=== PATIENT | male | born 1970 | race American Indian/Alaskan Native ===

== ENCOUNTER 2020-11-07 17:38 | Emergency (ER) | payer SELFPAY ==
[2020-11-07 20:07] VITALS: BP 122/71
[2020-11-07] MEDS ORDERED: TETRACAINE 0.5% OPHTH SOLN 4ML OU ONE (22:53)
[2020-11-07] MEDS ORDERED: FLUORESCEIN 1 MG STRIP OP ONE (22:53)
--- NOTE | 2020-11-07 23:15 | Emergency Department Report ---
ED General Adult HPI - General Chief complaint: Eye Problems Stated complaint: (R)EYE SWOLLEN PAIN Time Seen by Provider: 11/07/20 21:28 Source: patient Mode of arrival: Ambulatory Limitations: No Limitations - History of Present Illness Initial comments: 50-year-old male patient with history of hypertension, cataract surgery, and Lasix surgery presents to the emergency department with complaints of painful redness to his right eye with associated visual disturbance for 1 week. No preceding trauma. No known sick contacts. Patient describes the visual disturbance as "dark spots and jellyfish." No new medications. Patient is not currently under the care of an principal clerk. Denies cough, congestion, rash, headache, vomiting, vision loss, diplopia. Denies all other complaints at this time. - Related Data Previous Rx's Medication Instructions Recorded Last Taken Type Amoxicillin [Amoxicillin TAB] 875 mg PO BID 7 Days tablet 11/08/20 Unknown Rx Erythromycin [Erythromycin Ophth 10 applic OP QID #1 tube 11/08/20 Unknown Rx Oint] Sulfamethoxazole/Trimethoprim 1 each PO BID 7 Days tablet 11/08/20 Unknown Rx [Bactrim DS TAB] Allergies Allergy/AdvReac Type Severity Reaction Status Date / Time No Known Allergies Allergy Verified 11/07/20 23:23 ED Review of Systems ROS: Stated complaint: (R)EYE SWOLLEN PAIN Other details as noted in HPI Other: GENERAL: Negative for fever. EYES: Positive for pain/redness/visual disturbance. CARDIOVASCULAR: Negative for chest pain. PULMONARY: Negative for shortness of breath. GASTROINTESTINAL: Negative for abdominal pain. MUSCULOSKELETAL: Negative for back pain. NEUROLOGICAL: Negative for headache. INTEGUMENTARY: Negative for rash. ED Past Medical Hx - Medications Home Medications: Home Medications Medication Instructions Recorded Confirmed Last Taken Type Amoxicillin [Amoxicillin TAB] 875 mg PO BID 7 Days tablet 11/08/20 Unknown Rx Erythromycin [Erythromycin Ophth 10 applic OP QID #1 tube 11/08/20 Unknown Rx Oint] Sulfamethoxazole/Trimethoprim 1 each PO BID 7 Days tablet 11/08/20 Unknown Rx [Bactrim DS TAB] ED Physical Exam - General Limitations: No Limitations - Other Other exam information: General: Awake, appropriately interactive, no acute distress. Eyes: PERRL. Conjugate gaze. Patient endorses pain with extraocular movements. Right conjunctiva/sclera injection. Right periorbital tenderness/swelling. Tetracaine was used for local anesthesia. Fluorescein strip was used. Farmer lamp was used for visualization. Fluorescein uptake noted to the periphery of the right pupil from 5:00 to 7:00, consistent with prior surgery. No corneal abrasions. No corneal ulcerations. No foreign body found. Visual acuity is 20/70 on the right eye and 20/15 on the right eye. Limited funduscopic exam without apparent abnormalities. Neck: Supple. Full range of motion intact. Cardiovascular: Normal peripheral perfusion. Pulmonary: No respiratory distress. Patient is speaking normally without use of accessory muscles. Skin: No apparent rashes or lesions. Neurological: No facial asymmetry. Speech is clear. Follows commands. Patient is alert and oriented. Musculoskeletal: Moves all four extremities spontaneously with normal range of motion. Psych: Cooperative. Appropriate mood and affect. ED Course Vital Signs 11/07/20 20:07 Temperature 98.2 F Pulse Rate 64 Respiratory 16 Rate Blood Pressure 122/71 [Left] O2 Sat by Pulse 97 Oximetry - Procedure Description Procedures done: Verbal consent was obtained from the patient. The area was cleansed with alcohol. Hand hygiene observed. Two attempts to place peripheral IV (18 gauge and 22 gauge) in the right AC using ultrasound guidance were unsuccessful. ED Medical Decision Making - Lab Data Result diagrams: 11/07/20 23:27 11/07/20 23:27 - Radiology Data [facility] [address] [place] [address] Cat Scan Report Signed Patient: LOLI JALLOH MR#: [id number] : 1970 Acct:[id number] Age/Sex: 50 / M ADM Date: 11/07/20 Loc: ED Attending Dr: Ordering Physician: DIAMOND PACE Date of Service: 11/07/20 Procedure(s): CT orbit/ear/fossa wo con Accession Number(s): [id number] cc: DIAMOND PACE CT ORBITS / MAXILLOFACIAL WITHOUT CONTRAST INDICATION / CLINICAL INFORMATION: Left eye pain w/ extraocular movement, orbital cellulitis. Unable to obtain IV access. TECHNIQUE: All CT scans at this location are performed using CT dose reduction for ALARA by means of automated exposure control. COMPARISON: None available. FINDINGS: FACIAL BONES: No fracture or other significant abnormality. PARANASAL SINUSES: No significant abnormality. ORBITS: Left periorbital/preseptal soft tissue swelling. No orbital/post-septal soft tissue swelling or inflammation. SOFT TISSUES: No soft tissue gas. No abscess. VISUALIZED INTRACRANIAL STRUCTURES: No significant abnormality. ADDITIONAL FINDINGS: None. IMPRESSION: 1. Left periorbital/preseptal soft tissue swelling. No soft tissue gas or abscess. Signer Name: aTra Lay MD Signed: 11/08/2020 3:23 AM Workstation Name: [id number] Transcribed By: DT Dictated By: Trevor Lay MD Electronically Authenticated By: Trevor Lay MD Signed Date/Time: 11/08/20322 DD/ 6 TD/TT: - Medical Decision Making Differential diagnosis including but not limited to: periorbital cellulitis, orbital cellulitis, dacryocystitis, conjunctivitis, retinal vessel occlusion, retinal detachment, corneal abrasion, foreign body On reevaluation, patient remains stable. Labs are unremarkable. CT of the orbits performed without contrast; multiple attempts by several ED staff members to obtain IV access were unsuccessful. Patient states vascular access has always been difficult. Discussed with radiology and decision was made to proceed without contrast. CT demonstrated periorbital soft tissue swelling without evidence of abscess or orbital cellulitis. Visual acuities obtained and documented. Neurological exam is nonfocal. No clinical indication for further diagnostic work-up on an emergent basis at this time. Patient will be discharged home with prescriptions for Amoxicillin and Bactrim per current UpToDate guidelines, as well as Erythromycin ointment, and referred to ophthalmology for close outpatient follow-up. Emphasized the importance of calling the principal clerk office today to arrange for an appointment this week. Patient expressed understanding and is agreeable to plan of care. Strict return precautions provided. Repeat exam is unremarkable and benign. History, exam, diagnostic testing, and current condition do not suggest worrisome pathology to warrant further testing, continued ED treatment, admission, or surgical evaluation at this point. Given the low probability of a significant medical illness, it would be more likely to result in harm than benefit to perform further testing at this stage. Discussed findings, presumptive diagnosis, need for follow-up and specific signs/symptoms that should prompt immediate return to the emergency department. Instructions were explained in detail to the patient in addition to giving written discharge information. Patient expressed understanding and was given the opportunity to ask questions, all of which were satisfactorily answered prior to discharge home. Case discussed with Dr. Sanders, attending emergency physician, who personally evaluated the patient and agrees with diagnostic work-up/plan of care. Critical care attestation.: If time is entered above; I have spent that time in minutes in the direct care of this critically ill patient, excluding procedure time. ED Disposition Clinical Impression: Periorbital cellulitis of right eye Disposition: DC-01 TO HOME OR SELFCARE Is pt being admited?: No Does the pt Need Aspirin: No Condition: Stable Instructions: Preseptal Cellulitis, Adult Additional Instructions: Take Tylenol every 4 hours and Motrin every 8 hours as needed for pain. Take Bactrim and Amoxicillin with food as directed. Increase your dietary intake of probiotic rich foods while taking these medications. Apply Erythromycin ointment as directed. Apply cool compresses to affected area as needed for swelling. Follow up with principal clerk this week. Call today to schedule an appointment. See referral information below. Return to the emergency department immediately for new or worsening symptoms. Specifically, return to the emergency department immediately for fever, headache, worsening pain/visual disturbance, seizure, neck stiffness, or any other concerns. Prescriptions: Amoxicillin [Amoxicillin TAB] 875 mg PO BID 7 Days tablet Sulfamethoxazole/Trimethoprim [Bactrim DS TAB] 1 each PO BID 7 Days tablet Erythromycin [Erythromycin Ophth Oint] 10 applic OP QID #1 tube Referrals: ROBYN MARI MD [Staff Physician] - 3-5 Days Forms: Work/School Release Form(ED) Time of Disposition: 03:48
[2020-11-07 23:57] LABS: Basophils # (Auto) 0.1 K/mm3 (0.0-0.1); Basophils % (Auto) 0.8 % (0.0-1.8); Eosinophils # (Auto) 0.1 K/mm3 (0.0-0.4); Eosinophils % (Auto) 0.7 % (0.0-4.3); Hematocrit 43.7 % (35.5-45.6); Hemoglobin 15.2 gm/dl (11.8-15.2); Lymphocytes # (Auto) 3.7 K/mm3 (1.2-5.4); Lymphocytes % (Auto) 36.6 % (13.4-35.0); Mean Corpuscular HGB Conc 35 % (32-34); Mean Corpuscular Volume 89 fl (84-94); Monocytes # (Auto) 1.2 K/mm3 (0.0-0.8); Monocytes % (Auto) 11.9 % (0.0-7.3); Platelet Count 283 K/mm3 (140-440); Red Blood Count 4.89 M/mm3 (3.65-5.03); Red Cell Distribution Width 13.7 % (13.2-15.2)
[2020-11-08 00:18] LABS: Alanine Aminotransferase 22 units/L (7-56); Albumin 4.3 g/dL (3.9-5); BUN/Creatinine Ratio 16; Blood Urea Nitrogen 19 mg/dL (9-20); Calcium 9.2 mg/dL (8.4-10.2); Hemolysis Index 16
--- NOTE | 2020-11-08 03:27 | Cat Scan Report ---
CT ORBITS / MAXILLOFACIAL WITHOUT CONTRAST INDICATION / CLINICAL INFORMATION: Left eye pain w/ extraocular movement, orbital cellulitis. Unable to obtain IV access. TECHNIQUE: All CT scans at this location are performed using CT dose reduction for ALARA by means of automated exposure control. COMPARISON: None available. FINDINGS: FACIAL BONES: No fracture or other significant abnormality. PARANASAL SINUSES: No significant abnormality. ORBITS: Left periorbital/preseptal soft tissue swelling. No orbital/post-septal soft tissue swelling or inflammation. SOFT TISSUES: No soft tissue gas. No abscess. VISUALIZED INTRACRANIAL STRUCTURES: No significant abnormality. ADDITIONAL FINDINGS: None. IMPRESSION: 1. Left periorbital/preseptal soft tissue swelling. No soft tissue gas or abscess. Signer Name: Tara Lay MD Signed: 11/08/2020 3:23 AM Workstation Name: [id number]
== END 2020-11-08 04:00 | disposition home or self-care (01) ==
LOC: ED 17:38
DX: L03.213 Periorbital cellulitis (principal); Z79.899 Other long term (current) drug therapy
CPT/HCPCS: 36415; 70480; 80053; 85025

== ENCOUNTER 2021-05-30 15:08 | Emergency (ER) | payer OTHER ==
[2021-05-30] MEDS ORDERED: SULFAMETHOXAZOLE/TRIMETHOPRIM 800/160MG DS TAB PO ONE (17:05)
[2021-05-30] MEDS ORDERED: AMOXICILLIN 500 MG CAP PO ONE (17:05)
[2021-05-30] MEDS ORDERED: KETOROLAC 10 MG TAB PO ONE (17:06)
--- NOTE | 2021-05-30 17:11 | Emergency Department Report ---
ED Eye Problem HPI - General Chief complaint: Eye Problems Stated complaint: EYE PAIN Time Seen by Provider: 05/30/21 16:56 Source: patient Mode of arrival: Ambulatory Limitations: No Limitations - History of Present Illness Initial comments: 50-year-old black male with a past medical history of hypertension presents to the emergency department for evaluation of left eye redness and pain. He states that he noticed the redness yesterday along with some clear drainage. He states that he had the same symptoms about a year ago but they were worse DM. He denies any limited movement of the eye, pain with movement or loss of vision. He states that he has had some photophobia. He denies fever, shortness of breath. MD chief complaint: eye pain, eye redness -: Gradual, days(s) Onset Description: gradual (2) Location: left eye Place: home If Injury: none Eye Symptoms: redness, pain, discharge, photophobia Severity: mild Severity scale (0 -10): 4 If Pain, Quality: aching Consistency: intermittent Associated Symptoms: denies: headache, neck pain, nausea/vomiting, cough, rhinorrhea, fever, shortness of breath - Related Data Patient Tetanus UTD: Yes Previous Rx's Medication Instructions Recorded Last Taken Type Amoxicillin [Amoxicillin TAB] 875 mg PO BID 7 Days #14 tablet 05/30/21 Unknown Rx Erythromycin [Erythromycin Ophth 10 applic OP QID #1 tube 05/30/21 Unknown Rx Oint] Sulfamethoxazole/Trimethoprim 1 each PO BID 7 Days #14 tablet 05/30/21 Unknown Rx [Bactrim DS TAB] Allergies Allergy/AdvReac Type Severity Reaction Status Date / Time No Known Allergies Allergy Verified 11/07/20 23:23 ED Review of Systems ROS: Stated complaint: EYE PAIN Other details as noted in HPI Comment: All other systems reviewed and negative Constitutional: denies: chills, diaphoresis, fever, malaise, weakness Eyes: eye pain, eye discharge. denies: vision change ENT: denies: ear pain, throat pain, dental pain, hearing loss, congestion Respiratory: denies: cough, shortness of breath, SOB with exertion, SOB at rest Cardiovascular: denies: chest pain, palpitations, dyspnea on exertion, orthopnea, edema, syncope Endocrine: no symptoms reported Gastrointestinal: denies: abdominal pain, nausea, vomiting, diarrhea, constipation, hematemesis, melena, hematochezia Genitourinary: denies: urgency, dysuria, frequency, hematuria, discharge Musculoskeletal: denies: back pain Skin: denies: rash, lesions Neurological: denies: headache, weakness, numbness, paresthesias, confusion, abnormal gait, vertigo Psychiatric: denies: anxiety, depression Hematological/Lymphatic: denies: easy bleeding, easy bruising ED Past Medical Hx - Medications Home Medications: Home Medications Medication Instructions Recorded Confirmed Last Taken Type Amoxicillin [Amoxicillin TAB] 875 mg PO BID 7 Days #14 tablet 05/30/21 Unknown Rx Erythromycin [Erythromycin Ophth 10 applic OP QID #1 tube 05/30/21 Unknown Rx Oint] Sulfamethoxazole/Trimethoprim 1 each PO BID 7 Days #14 tablet 05/30/21 Unknown Rx [Bactrim DS TAB] ED Physical Exam - General Limitations: No Limitations General appearance: alert, in no apparent distress - Head Head exam: Present: atraumatic, normocephalic - Eye Eye exam: Present: PERRL, EOMI, conjunctival injection, periorbital swelling, periorbital tenderness. Absent: normal appearance (No bulging of left eye noted), scleral icterus Pupils: Present: normal accommodation - Expanded Eye Exam Expanded Eyelids: Normal Inspection: Left Pupils: Regular, Round: Bilateral, Reactive: Bilateral Sclera/Conjunctival: Normal Inspection: Right, Injection: Left - ENT ENT exam: Present: normal exam. Absent: normal orophraynx - Neck Neck exam: Present: normal inspection - Respiratory Respiratory exam: Present: normal lung sounds bilaterally. Absent: respiratory distress - Cardiovascular Cardiovascular Exam: Present: bradycardia, normal heart sounds - GI/Abdominal GI/Abdominal exam: Present: soft, normal bowel sounds. Absent: distended, tende rness, guarding, rebound, rigid - Extremities Exam Extremities exam: Present: normal inspection, full ROM - Back Exam Back exam: Present: normal inspection, full ROM - Neurological Exam Neurological exam: Present: alert, oriented X3 - Psychiatric Psychiatric exam: Present: normal affect, normal mood - Skin Skin exam: Present: warm, dry, intact ED Course Vital Signs 05/30/21 05/30/21 05/30/21 16:28 17:18 18:06 Temperature 97.7 F 98.6 F Pulse Rate 58 L 82 Respiratory 16 16 16 Rate Blood Pressure 114/64 124/78 [Left] O2 Sat by Pulse 98 97 Oximetry ED Medical Decision Making - Medical Decision Making 50-year-old black male with a past medical history of hypertension presents to the emergency department for evaluation of left eye redness and pain. He states that he noticed the redness yesterday along with some clear drainage. He states that he had the same symptoms about a year ago but they were worse DM. He denies any limited movement of the eye, pain with movement or loss of vision. He states that he has had some photophobia. He denies fever, shortness of breath. Exam consistent with periorbital swelling. Symptoms occurred to the left only. Patient denies limited eye movement, pain on eye movement, and loss of vision. No bulging of left noted. Patient appears to be in no acute distress. He will be treated with erythromycin ointment nightly to affected eye. 7-day course of amoxicillin 875 mg p.o. twice daily along with Bactrim DS p.o. twice daily. He was advised to take medications as prescribed, and follow-up with ophthalmology for further evaluation. He was advised to return to the emergency department or ophthalmology if worsening symptoms. He verbalized an understanding of and agreement with plan of care. Critical care attestation.: If time is entered above; I have spent that time in minutes in the direct care of this critically ill patient, excluding procedure time. ED Disposition Clinical Impression: Periorbital cellulitis of left eye Disposition: HOME / SELF CARE / HOMELESS Is pt being admited?: No Does the pt Need Aspirin: No Condition: Stable Instructions: Preseptal Cellulitis, Adult Additional Instructions: Take medications as prescribed. Follow-up with ophthalmology for further evaluation and worsening symptoms. Prescriptions: Amoxicillin [Amoxicillin TAB] 875 mg PO BID 7 Days #14 tablet Sulfamethoxazole/Trimethoprim [Bactrim DS TAB] 1 each PO BID 7 Days #14 tablet Erythromycin [Erythromycin Ophth Oint] 10 applic OP QID #1 tube Referrals: ESAU ROMO MD [Staff Physician] - 3-5 Days Forms: Work/School Release Form(ED) Time of Disposition: 17:10
[2021-05-30 18:07] VITALS: BP 124/78
== END 2021-05-30 18:07 | disposition home or self-care (01) ==
LOC: ED 15:08
DX: L03.213 Periorbital cellulitis (principal)
CPT/HCPCS: 99282

== ENCOUNTER 2021-07-30 21:30 | Emergency (ER) | payer OTHER ==
[2021-07-30 22:37] LABS: Bilirubin,Urine NEG (Negative); Blood,Urine NEG (Negative); Color,Urine Yellow (Yellow); Mucus,Urine FEW /HPF; Protein,Urine <15 mg/dL mg/dL (Negative); RBC,Urine < 1.0 /HPF (0.0-6.0)
--- NOTE | 2021-07-31 00:25 | Emergency Department Report ---
ED General Adult HPI - General Chief complaint: Pain General Stated complaint: PAIN IN GROIN Source: patient Mode of arrival: Ambulatory Limitations: No Limitations - History of Present Illness Initial comments: Patient is a 51-year-old -Mexican male with no past medical history presents to the ED with complaint of acute onset persistent intermittent right inguinal pain with occasional inguinal hernia after heavy lifting at work for the last 2 months. Patient states that whenever the inguinal hernia appears the pain gets worse. Patient states that his job entails heavy lifting at work at [employer] and usually when at work he experiences pain and usually sees inguinal hernia popping up under is relieved by rest. Patient denies traumatic injury, testicular pain, fever, chills, dysuria, urinary frequency and urgency, abdominal pain, nausea and vomiting, low back pain, chest pain or shortness of breath. MD Complaint: RIGHT INGUINAL PAIN, Suspected intermittent hernia -: Sudden, month(s) (2) Location: pelvis (Right inguinal area), lower extremity (Right inguinal area) Radiation: non-radiation Severity scale (0 -10): 3 Quality: aching, dull Consistency: intermittent Improves with: none Worsens with: movement, other (Heavy lifting) Associated Symptoms: denies other symptoms. denies: confusion, chest pain, c ough, diaphoresis, fever/chills, headaches, loss of appetite, malaise, nausea/vomiting, rash, seizure, shortness of breath, syncope, weakness, other Treatments Prior to Arrival: none - Related Data Previous Rx's Medication Instructions Recorded Last Taken Type Amoxicillin [Amoxicillin TAB] 875 mg PO BID 7 Days #14 tablet 05/30/21 Unknown Rx Erythromycin [Erythromycin Ophth 10 applic OP QID #1 tube 05/30/21 Unknown Rx Oint] Sulfamethoxazole/Trimethoprim 1 each PO BID 7 Days #14 tablet 05/30/21 Unknown Rx [Bactrim DS TAB] Ibuprofen [Motrin] 800 mg PO Q8HR PRN #30 tablet 07/31/21 Unknown Rx Allergies Allergy/AdvReac Type Severity Reaction Status Date / Time No Known Allergies Allergy Verified 11/07/20 23:23 ED Review of Systems ROS: Stated complaint: PAIN IN GROIN Other details as noted in HPI Constitutional: denies: chills, fever Eyes: denies: eye pain, eye discharge, vision change ENT: denies: ear pain, throat pain Respiratory: denies: cough, shortness of breath, wheezing Cardiovascular: denies: chest pain, palpitations Endocrine: no symptoms reported Gastrointestinal: denies: abdominal pain, nausea, vomiting, diarrhea, hematemesis Genitourinary: other (Right inguinal pain intermittently due to hernia). denies: urgency, dysuria Musculoskeletal: denies: back pain, joint swelling, arthralgia Skin: denies: rash, lesions Neurological: denies: headache, weakness, paresthesias Psychiatric: denies: anxiety, depression Hematological/Lymphatic: denies: easy bleeding, easy bruising ED Past Medical Hx - Past Medical History Additional medical history: Right inguinal hernia - Medications Home Medications: Home Medications Medication Instructions Recorded Confirmed Last Taken Type Amoxicillin [Amoxicillin TAB] 875 mg PO BID 7 Days #14 tablet 05/30/21 Unknown Rx Erythromycin [Erythromycin Ophth 10 applic OP QID #1 tube 05/30/21 Unknown Rx Oint] Sulfamethoxazole/Trimethoprim 1 each PO BID 7 Days #14 tablet 05/30/21 Unknown Rx [Bactrim DS TAB] Ibuprofen [Motrin] 800 mg PO Q8HR PRN #30 tablet 07/31/21 Unknown Rx ED Physical Exam - General Limitations: No Limitations General appearance: alert, in no apparent distress - Head Head exam: Present: atraumatic, normocephalic, normal inspection - Eye Eye exam: Present: normal appearance, PERRL, EOMI Pupils: Present: normal accommodation - ENT ENT exam: Present: normal exam, normal orophraynx, mucous membranes moist, TM's normal bilaterally, normal external ear exam - Neck Neck exam: Present: normal inspection, full ROM. Absent: tenderness - Respiratory Respiratory exam: Present: normal lung sounds bilaterally. Absent: respiratory distress, wheezes, rales, rhonchi, chest wall tenderness, accessory muscle use - Cardiovascular Cardiovascular Exam: Present: regular rate, normal rhythm, normal heart sounds. Absent: systolic murmur, diastolic murmur, rubs, gallop - GI/Abdominal GI/Abdominal exam: Present: soft, normal bowel sounds. Absent: tenderness, guarding, rebound, rigid, hyperactive bowel sounds, hypoactive bowel sounds, organomegaly, mass - Rectal Rectal exam: Present: deferred - Extremities Exam Extremities exam: Present: normal inspection, full ROM, normal capillary refill. Absent: tenderness - Back Exam Back exam: Present: normal inspection, full ROM. Absent: tenderness, CVA tenderness (R), CVA tenderness (L), muscle spasm, vertebral tenderness - Neurological Exam Neurological exam: Present: alert, oriented X3, CN II-XII intact, normal gait, reflexes normal - Psychiatric Psychiatric exam: Present: normal affect, normal mood - Skin Skin exam: Present: warm, dry, intact, normal color. Absent: rash ED Course Vital Signs 07/30/21 22:18 Temperature 99.1 F Pulse Rate 68 Respiratory 16 Rate Blood Pressure 129/75 O2 Sat by Pulse 98 Oximetry ED Medical Decision Making - Medical Decision Making This is a 51-year-old -Mexican male with no past medical history presents to the ED with complaint of acute onset persistent intermittent right inguinal pain with occasional inguinal hernia after heavy lifting at work for the last 2 months. Patient states that whenever the inguinal hernia appears the pain gets worse. Patient states that his job entails heavy lifting at work at [employer] and usually when at work he experiences pain and usually sees inguinal hernia popping up under is relieved by rest. In the ED, patient is alert and oriented x3 and is not in any distress. Urinalysis is unremarkable. Physical exam is unremarkable. Based on the history, patient was discharged home and given a referral to general surgeon Dr. Antunez for follow-up as needed or when the right inguinal hernia flareups. Patient was advised to return to the ED immediately if symptoms get worse. - Differential Diagnosis Inguinal hernia; muscle strain; inguinal lymphadenopathy Critical care attestation.: If time is entered above; I have spent that time in minutes in the direct care of this critically ill patient, excluding procedure time. ED Disposition Clinical Impression: Inguinal hernia recurrent unilateral Qualifiers: Obstruction and gangrene presence: without obstruction or gangrene Qualified Code(s): K40.91 - Unilateral inguinal hernia, without obstruction or gangrene, recurrent Disposition: 01 HOME / SELF CARE / HOMELESS Is pt being admited?: No Does the pt Need Aspirin: No Condition: Stable Instructions: Inguinal Hernia, Adult, [id number] Additional Instructions: Take medication as needed for pain, do plenty of fluids, follow-up with a general surgeon Dr. Antunez as needed. Contact his office to schedule a follow- up appointment for further evaluation. Return to the ED immediately if symptoms get worse. Prescriptions: Ibuprofen [Motrin] 800 mg PO Q8HR PRN #30 tablet PRN Reason: Pain , Severe (7-10) Referrals: JUDY ANTUNEZ MD [Staff Physician] - as needed Forms: Work/School Release Form(ED) Time of Disposition: 00:25 Print Language: MALTESE
[2021-07-31 00:59] VITALS: BP 130/76
== END 2021-07-31 00:55 | disposition home or self-care (01) ==
LOC: ED 21:30
DX: K40.91 Unilateral inguinal hernia, without obstruction or gangrene, recurrent (principal)
CPT/HCPCS: 81001; 99283

== ENCOUNTER 2021-08-12 22:34 | Emergency (ER) | payer OTHER ==
--- NOTE | 2021-08-13 04:26 | Emergency Department Report ---
ED General Adult HPI - General Chief complaint: Abdominal Pain Stated complaint: HERNIA Source: patient Mode of arrival: Ambulatory Limitations: No Limitations - History of Present Illness Initial comments: Patient is a 51-year-old -Citizen Of [place] male with a history of chronic recurrent right inguinal hernia presents to the ED with acute exacerbation of his chronic right inguinal hernia pain for the last 2 days. Patient states that he was initially evaluated in this ER a few months ago and was referred to the general surgeon for further evaluation and he has an appointment with a general surgeon on July 19, 2021 but while at work which involves heavy lifting he realized that the pain in the right inguinal area was getting worse and he decided come to the ED for evaluation. Patient states that while waiting to be evaluated, the right inguinal hernia resolved and now he has no pain. Patient denies nausea and vomiting, testicular pain, dysuria, urinary frequency and urgency, hematuria, diarrhea, fever, chills, back pain, chest pain or shortness of breath. MD Complaint: right inguinal hernia pain -: Gradual, month(s) (12) Location: pelvis (Right inguinal area) Radiation: non-radiation Severity scale (0 -10): 0 Quality: dull Consistency: intermittent Improves with: rest Worsens with: movement, other (Heavy lifting) Associated Symptoms: denies other symptoms. denies: confusion, chest pain, cough, diaphoresis, fever/chills, headaches, loss of appetite, malaise, nausea/vomiting, rash, seizure, shortness of breath, syncope, weakness, other Treatments Prior to Arrival: none - Related Data Previous Rx's Medication Instructions Recorded Last Taken Type Amoxicillin [Amoxicillin TAB] 875 mg PO BID 7 Days #14 tablet 05/30/21 Unknown Rx Erythromycin [Erythromycin Ophth 10 applic OP QID #1 tube 05/30/21 Unknown Rx Oint] Sulfamethoxazole/Trimethoprim 1 each PO BID 7 Days #14 tablet 05/30/21 Unknown Rx [Bactrim DS TAB] Ibuprofen [Motrin] 800 mg PO Q8HR PRN #30 tablet 07/31/21 Unknown Rx Allergies Allergy/AdvReac Type Severity Reaction Status Date / Time No Known Allergies Allergy Verified 11/07/20 23:23 ED Review of Systems ROS: Stated complaint: HERNIA Other details as noted in HPI Constitutional: denies: chills, fever Eyes: denies: eye pain, eye discharge, vision change ENT: denies: ear pain, throat pain Respiratory: denies: cough, shortness of breath, wheezing Cardiovascular: denies: chest pain, palpitations Endocrine: no symptoms reported Gastrointestinal: other (Right inguinal pain due to recurrent right inguinal hernia). denies: abdominal pain, nausea, diarrhea Genitourinary: other (Right inguinal pain due to recurrent chronic right middle hernia). denies: urgency, dysuria Musculoskeletal: denies: back pain, joint swelling, arthralgia Skin: denies: rash, lesions Neurological: denies: headache, weakness, paresthesias Psychiatric: denies: anxiety, depression Hematological/Lymphatic: denies: easy bleeding, easy bruising ED Past Medical Hx - Past Medical History Additional medical history: Right inguinal hernia - Medications Home Medications: Home Medications Medication Instructions Recorded Confirmed Last Taken Type Amoxicillin [Amoxicillin TAB] 875 mg PO BID 7 Days #14 tablet 05/30/21 Unknown Rx Erythromycin [Erythromycin Ophth 10 applic OP QID #1 tube 05/30/21 Unknown Rx Oint] Sulfamethoxazole/Trimethoprim 1 each PO BID 7 Days #14 tablet 05/30/21 Unknown Rx [Bactrim DS TAB] Ibuprofen [Motrin] 800 mg PO Q8HR PRN #30 tablet 07/31/21 Unknown Rx ED Physical Exam - General Limitations: No Limitations General appearance: alert, in no apparent distress - Head Head exam: Present: atraumatic, normocephalic, normal inspection - Eye Eye exam: Present: normal appearance, PERRL, EOMI Pupils: Present: normal accommodation - ENT ENT exam: Present: normal exam, normal orophraynx, mucous membranes moist, TM's normal bilaterally, normal external ear exam - Neck Neck exam: Present: normal inspection, full ROM - Respiratory Respiratory exam: Present: normal lung sounds bilaterally. Absent: respiratory distress, wheezes, rhonchi, stridor, chest wall tenderness, accessory muscle use, prolonged expiratory - Cardiovascular Cardiovascular Exam: Present: regular rate, normal rhythm, normal heart sounds. Absent: systolic murmur, diastolic murmur, rubs, gallop - GI/Abdominal GI/Abdominal exam: Present: soft, normal bowel sounds. Absent: tenderness, guarding, rebound, hyperactive bowel sounds, hypoactive bowel sounds, organomegaly, mass - Extremities Exam Extremities exam: Present: normal inspection, full ROM, normal capillary refill. Absent: tenderness - Back Exam Back exam: Present: normal inspection, full ROM. Absent: tenderness, CVA tenderness (R), CVA tenderness (L), muscle spasm, paraspinal tenderness, vertebral tenderness - Neurological Exam Neurological exam: Present: alert, oriented X3, CN II-XII intact, normal gait, reflexes normal - Psychiatric Psychiatric exam: Present: normal affect, normal mood - Skin Skin exam: Present: warm, dry, intact, normal color. Absent: rash ED Course Vital Signs 08/12/21 22:38 Temperature 32.1 F L Pulse Rate 80 Respiratory 14 Rate Blood Pressure 116/75 O2 Sat by Pulse 97 Oximetry ED Medical Decision Making - Medical Decision Making This is a 51-year-old -Citizen Of [place] male with a history of chronic recurrent right inguinal hernia presents to the ED with acute exacerbation of his chronic right inguinal hernia pain for the last 2 days. Patient states that he was initially evaluated in this ER a few months ago and was referred to the general surgeon for further evaluation and he has an appointment with a general surgeon on July 19, 2021 but while at work which involves heavy lifting he realized that the pain in the right inguinal area was getting worse and he decided come to the ED for evaluation. Patient states that while waiting to be evaluated, the right inguinal hernia resolved and now he has no pain. In the ED, patient is alert and oriented x3 and is not in any distress. Physical exam is unremarkable. Patient was discharged home and advised to follow-up with a general surgeon Dr. Antunez as previously scheduled. Patient is advised return to the ED immediately if symptoms get worse. - Differential Diagnosis Chronic inguinal hernia; muscle spasm; muscle strain Critical care attestation.: If time is entered above; I have spent that time in minutes in the direct care of this critically ill patient, excluding procedure time. ED Disposition Clinical Impression: Recurrent inguinal hernia unilateral Qualifiers: Obstruction and gangrene presence: without obstruction or gangrene Qualified Code(s): K40.91 - Unilateral inguinal hernia, without obstruction or gangrene, recurrent Disposition: 01 HOME / SELF CARE / HOMELESS Is pt being admited?: No Does the pt Need Aspirin: No Condition: Stable Instructions: Inguinal Hernia, Adult, [id number], Open Hernia Repair, Adult, Care After, [id number] Additional Instructions: Take pain medication as previously prescribed with food, drink plenty of fluids, follow-up with the general surgeon Dr. Antunez as previously scheduled. Return to the ED immediately if symptoms get worse. Referrals: JUDY ANTUNEZ MD [Staff Physician] - 3-5 Days Forms: Work/School Release Form(ED) Time of Disposition: 04:28 Print Language: UPPER SORBIAN
[2021-08-13 04:52] VITALS: BP 118/66
== END 2021-08-13 05:36 | disposition home or self-care (01) ==
LOC: ED 22:34
DX: K40.91 Unilateral inguinal hernia, without obstruction or gangrene, recurrent (principal)
CPT/HCPCS: 99282